=== PATIENT | female | born 1970 | race Hispanic/Latino ===

== ENCOUNTER 2019-01-08 11:31 | Emergency (ER) | payer SELFPAY ==
[2019-01-08 12:09] LABS: #Eosinphils 0.1 thou/uL (0.0-0.7); #Lymphocytes 1.9 thou/uL (1.20-3.40); #Monocytes 0.4 thou/uL (0.11-0.59); #Neutrophils 5.5 thou/uL (1.40-6.50); %Basophils 0.1 % (0.0-1.0); %Eosinophils 1.4 % (0.0-10.0); %Lymphocytes 23.8 % (21.0-51.0); %Monocytes 4.5 % (0.0-10.0); %Neutrophils 70.2 % (42.0-75.0); Hemoglobin 12.3 g/dL (12.0-16.0); Mean Corpuscular HGB CONC 32.2 g/dL (32.0-36.0); Mean Corpuscular Hemoglobin 25.9 pg (27.0-31.0); Mean Corpuscular Volume 80.4 fL (78.0-98.0); Mean Platelet Volume 8.5 fL (7.4-10.4); Platelet Count 234 thou/uL (130-400); RBC Distribution Width 11.9 % (11.5-14.5); Red Blood Cell (RBC) Count 4.77 mill/uL (4.20-5.40); White Blood Cell (WBC) Count 7.9 thou/uL (4.8-10.8)
[2019-01-08 12:26] LABS: Bilirubin Negative (Negative); Blood, Urine 1+ (Negative); Clarity Clear (Clear); Glucose, Urine (Dipstick) Normal (Negative); Leukocyte 250 Leu/uL (Negative); Nitrite Negative (Negative); Protein, Urine (Dipstick) Negative (Neg-Trace); Urobilinogen Normal mg/dL (Less than 2)
[2019-01-08 12:28] LABS: Bacteria/HPF 1+ HPF (None Seen); Pregnancy Test - Urine (BHCG) Negative (Negative); Pregu Control Background? CLEAR/WHITE (CLR/WHITE); Pregu Control Bar Appear? YES (CONTROL BAR); Specific Gravity 1.025 (1.002-1.036)
[2019-01-08 12:39] LABS: ALT (SGPT) 22 U/L (8-55); AST (SGOT) 23 U/L (5-34); Albumin 4.5 g/dL (3.5-5.0); Alkaline Phosphatase 94 U/L (40-110); Anion Gap 13 mmol/L (10-20); BUN (Urea Nitrogen) 10 mg/dL (7.0-18.7); Bilirubin, Total 0.6 mg/dL (0.2-1.2); Calc. Creatinine Clearance 0 mL/min (70-130); Calcium 9.4 mg/dL (7.8-10.44); Carbon Dioxide 24 mmol/L (22-29); Chloride 105 mmol/L (98-107); Estimated GFR-MDRD Greater than 90; Globulin 3.3 g/dL (2.4-3.5); Glucose 111 mg/dL (70-105); Protein, Total 7.8 g/dL (6.0-8.3); Sodium 138 mmol/L (136-145)
[2019-01-08] MEDS ORDERED: Ketorolac Tromethamine 30 MG/ML VIAL ONE (12:42)
--- NOTE | 2019-01-08 13:41 | ULT ---
ULTRASOUND PELVIC ULTRASOUND TRANSVAGINAL DOPPLER DUPLEX: DATE: 01/08/2019 HISTORY: 48-year-old female with pelvic pain TECHNIQUE: Transabdominal transducer and endovaginal transducer used to visualize intrapelvic contents with dykes scale, color-flow, and spectral analysis. FINDINGS: There is a large, spherical, well circumscribed right adnexal mass measuring approximately 8 x 8 x 8 cm, with nonlobulated, thin cordero. It is hypoechoic, interspersed with innumerable short, horizontally oriented internal bright echoes. Blood flow not demonstrated within it. Ovarian tissue i s not visualized on the right. The left ovary is also not visualized. Uterus measures 9 x 6 x 5 cm. Endometrial stripe is 1.7 cm (17 mm). No free fluid in the cul-de-sac. IMPRESSION: 1. Large 8 cm right adnexal mass. Etiology uncertain. Large hemorrhagic right ovarian cyst versus jeanmarie plasm. Recommend further evaluation with CT of abdomen and pelvis with contrast. 2. Thickened endometrial stripe of 17 mm.
--- NOTE | 2019-01-08 14:48 | CT ---
CT of the abdomen and pelvis: 01/08/2019 COMPARISON: None HISTORY: Intermittent right-sided abdominal pain TECHNIQUE: Axial CT imaging at 5 mm intervals from lung bases through pubic symphysis with intravenou s contrast. Coronal and sagittal reformatted imaging obtained FINDINGS: Imaged lung bases unremarkable. No free intraperitoneal air or fluid. The hepatic parenchyma is hypodense suggesting steatosis. Gallbladder, spleen, pancreas, adrenal glan ds, and kidneys grossly unremarkable. There is a large mass within the anterior aspect of the pelvis to the right of midline superior to th e urinary bladder, abutting the anterior aspect of the uterine fundus on the right. This mass demonstrates a large area of fat density as well as areas of coarse calcification. It measures 7.7 x 7.3 x 7.7 cm and is consistent with an ovarian dermoid. Scattered diverticulosis of the sigmoid and descending colon. No evidence for diverticulitis. The tristan endix is unremarkable. No bowel inflammatory change or evidence of bowel obstruction. Vascular structures of the abdomen/pelvis appear patent. No acute osseous abnormality. No worrisome l ytic or blastic bone lesion. IMPRESSION: 7.7 cm right-sided anterior pelvic mass with CT findings consistent with an ovarian dermo id.
== END 2019-01-08 15:38 | disposition home or self-care (01) ==
LOC: ERS 11:31
DX: D23.5 Other benign neoplasm of skin of trunk (principal); R73.03 Prediabetes; Z79.84 Long term (current) use of oral hypoglycemic drugs
CPT/HCPCS: 36415; 74177; 76856; 80053; 81003; 81015; 81025; 85025; 93976; 96372; J1885

== ENCOUNTER 2019-02-20 06:11 | Outpatient (CLI) | payer OTHER ==
[2019-02-20 16:10] LABS: Hemoglobin 12.3 g/dL (12.0-16.0); Mean Corpuscular HGB CONC 32.2 g/dL (32.0-36.0); Mean Corpuscular Hemoglobin 25.6 pg (27.0-31.0); Mean Corpuscular Volume 79.5 fL (78.0-98.0); Mean Platelet Volume 8.5 fL (7.4-10.4); Platelet Count 244 thou/uL (130-400); RBC Distribution Width 12.3 % (11.5-14.5); Red Blood Cell (RBC) Count 4.82 mill/uL (4.20-5.40)
== END 2019-02-20 06:12 | disposition home or self-care (01) ==
LOC: LABBT 06:11
PROVIDERS: ATTEND Obstetrics & Gynecology
DX: Z01.812 Encounter for preprocedural laboratory examination (principal); N83.201 Unspecified ovarian cyst, right side
CPT/HCPCS: 85027; 86850; 86900; 86901

== ENCOUNTER 2019-02-25 10:06 | Day surgery (SDC) | payer OTHER ==
[2019-02-20 15:23] VITALS: BMI 27.4
[2019-02-20 16:10] LABS: Hemoglobin 12.3 g/dL (12.0-16.0); Mean Corpuscular HGB CONC 32.2 g/dL (32.0-36.0); Mean Corpuscular Hemoglobin 25.6 pg (27.0-31.0); Mean Corpuscular Volume 79.5 fL (78.0-98.0); Mean Platelet Volume 8.5 fL (7.4-10.4); Platelet Count 244 thou/uL (130-400); RBC Distribution Width 12.3 % (11.5-14.5); Red Blood Cell (RBC) Count 4.82 mill/uL (4.20-5.40)
[2019-02-25] MEDS ORDERED: PROPOFOL 200 MG/20 ML VIAL ONE (13:57)
[2019-02-25] MEDS ORDERED: Rocuronium Bromide 10 MG/ML (10ML VIAL) ONE (13:57)
[2019-02-25] MEDS ORDERED: Lidocaine 1% PF 5 ML VIAL ONE (13:57)
[2019-02-25] MEDS ORDERED: Ondansetron PF 4 MG/2 ML Vial ONE (13:57)
[2019-02-25] MEDS ORDERED: Glycopyrrolate 0.2 MG/ML 5 ML SYRINGE ONE (13:57)
[2019-02-25] MEDS ORDERED: Dexamethasone 20 MG/5 ML VIAL ONE (13:57)
[2019-02-25] MEDS ORDERED: Ketorolac Tromethamine 30 MG/ML VIAL ONE (13:57)
[2019-02-25] MEDS ORDERED: Midazolam HCl 2 mg/2 ml Vial ONE ×2 (14:18→14:41)
[2019-02-25] MEDS ORDERED: Fentanyl 100 MCG/2 ML VIAL ONE (14:41)
[2019-02-25] MEDS ORDERED: HYDROmorphone 2 MG/ML VIAL ONE (14:41)
[2019-02-25] MEDS ORDERED: Bupivacaine PF 0.5% 30 ML VIAL ONE (14:43)
[2019-02-25] MEDS ORDERED: Lidocaine 1% w/Epinephrine 1:100K 20 ML VIAL ONE (14:43)
[2019-02-25] MEDS ORDERED: Methylene Blue 50 MG/10 ML AMPUL ONE (14:43)
[2019-02-25] MEDS ORDERED: EPINEPHrine 1 MG/ML AMP ONE (14:45)
[2019-02-25] MEDS ORDERED: HYDROmorphone 0.5 MG/0.5 ML SYRINGE ONE (15:25)
[2019-02-25] MEDS ORDERED: Promethazine HCl 25 MG/ML VIAL ONE (15:25)
[2019-02-25] MEDS ORDERED: HYDROmorphone 2 MG/ML VIAL SLOW IVP PRN (16:47)
[2019-02-25] MEDS ORDERED: Promethazine HCl 25 MG/ML VIAL IM PRN (16:47)
[2019-02-25] MEDS ORDERED: PACU-Morphine 4MG/ML VIAL SLOW IVP PRN (16:47)
[2019-02-25] MEDS ORDERED: Promethazine HCl 25 MG/ML VIAL SLOW IVP PRN (16:47)
[2019-02-25] MEDS ORDERED: Ondansetron HCl/PF 4 MG/2 ML Vial IVP PRN (16:47)
--- NOTE | 2019-02-25 23:40 | OP ---
DATE OF PROCEDURE: 02/25/2019 PREOPERATIVE DIAGNOSIS: Pelvic mass, dermoid suspected. POSTOPERATIVE DIAGNOSIS: Left dermoid ovarian cyst. PROCEDURES PERFORMED: Laparoscopic left salpingo-oophorectomy. DIRECTOR INFORMATION: Christina Martínez PA-C. COMPLICATIONS: None. ESTIMATED BLOOD LOSS: Less than 10 mL. ANESTHESIA: GETA. OPERATIVE FINDINGS: 1. Normal-appearing uterus, normal-appearing right and left fallopian tubes. 2. Normal-appearing right ovary. 3. Large approximately 8-9 cm left ovarian consistent with dermoid. DESCRIPTION OF PROCEDURE: The patient was taken back to the OR with IV fluids running. When she was in the OR, she was placed in dorsal supine position. After general anesthesia was obtained, the patient was placed in low dorsal lithotomy position. The abdomen and vagina were prepped and draped in normal fashion for gynecologic laparoscopy. A Ceballos catheter was placed into the bladder using sterile technique. A sponge stick was placed into the uterus for manipulation, if needed during the case. The surgeon's gloves were then changed and attention was turned to the laparoscopic portion of the procedure. A 12 mm skin incision was made at the supraumbilical fold after Marcaine was injected underneath the skin. A Veress needle was placed through this incision and the abdomen was insufflated without difficulty. The Veress needle was then removed and a 12 mm trocar was placed through the distended abdomen without difficulty. The obturator was removed and the laparoscope was placed through this trocar with the above findings noted. The patient was placed in Trendelenburg position and under direct visualization in similar fashion, right and left lower quadrant 5 mm ports were placed without difficulty. After the three ports were placed, the supraumbilical incision was cut to approximately 2 cm through the skin, subcutaneous tissue into the fascia. The 12 mm trocar was removed and Mini Jeremy retractor was placed through this incision for retraction and for placement of a GelPOINT cap. A 12 mm trocar was placed through the GelPOINT cap, which was assembled and the abdomen was reinsufflated. With a blunt grasper, the left ovary was manipulated and appeared to be torsed at the left side. The left fallopian tube was identified, inspected and appeared normal. The ureter was noted to be coursing away from the IP ligament on the patient's left side. The specimen was elevated. The IP ligament was isolated, cauterized, and transected using a LigaSure device. After the specimen was free from the IP ligament in similar fashion, utero-ovarian ligament was cauterized and transected. Once the ovary and tube specimen were freed from the left pelvic sidewall, the area of dissection was irrigated and suctioned dry. No areas of bleeding were noted. A large endoscopic bag was then placed through the GelPOINT retractor. It was deployed and the specimen was placed within the bag. The bag was then retracted through the GelPOINT retractor. At this point, the counts were correct. All instruments were removed from the abdomen as well as the right and left lower quadrant trocars and the GelPOINT cap. The specimen was contained within the laparoscopic bag and brought through the supraumbilical incision. The specimen was incised within the bag and immediately drained caseous appearing fluid. A large collection of hair was removed with a Anais clamp from the cyst. The cyst was decompressed with suction and once the specimen was decompressed, it was removed and completely contained within the bag through the incision. The incisions were all inspected, irrigated and cleaned dry. The fascia at the supraumbilical incision was closed with Vicryl suture. All 3 skin incisions were closed with Monocryl suture and dressed with Dermabond dressing. The sponge stick was removed from the vagina. The patient was cleaned, dried, taken out of lithotomy position, extubated, and transferred to recovery room with plans for discharge home later this evening. Job ID: [id number]
== END 2019-02-25 18:50 | disposition home or self-care (01) ==
LOC: SDC 10:06
PROVIDERS: ATTEND Obstetrics & Gynecology
PROC: 0UT64ZZ Resection of Left Fallopian Tube, Percutaneous Endoscopic Approach (ICD-10-PCS; principal; 2019-02-25)
PROC: 0UT14ZZ Resection of Left Ovary, Percutaneous Endoscopic Approach (ICD-10-PCS; principal; 2019-02-25)
DX: D39.12 Neoplasm of uncertain behavior of left ovary (principal); N83.8 Other noninflammatory disorders of ovary, fallopian tube and broad ligament; Z79.84 Long term (current) use of oral hypoglycemic drugs
CPT/HCPCS: 36415; 85027; 86850; 86900; 86901; 88307; 88341; 88342; J0171; J0690; J1100; J1170; J1885; J2001; J2250; J2405; J2550; J2704; J3010; Q9968; S0020